=== PATIENT | male | born 1990 | race African-American/Black ===

== ENCOUNTER 2017-08-31 21:12 | Emergency (ER) | payer SELFPAY ==
[~2017-08-31] VITALS: Ht 170.2 cm; Wt 71.0 kg
[2017-09-01] MEDS ORDERED: ACETAMINOPHEN 500MG TABLET PO ONE (05:45)
[2017-09-01 06:20] VITALS: BP 129/81
== END 2017-09-01 06:20 | disposition home or self-care (01) ==
LOC: ER 09-01 06:20
DX: H92.12 Otorrhea, left ear (principal)
CPT/HCPCS: 99282; X7700; Z7610